=== PATIENT | female | born 1960 | race Caucasian/White ===

== ENCOUNTER 2021-02-03 11:23 | Emergency (ER) | payer OTHER ==
[2021-02-03 12:29] LABS: RED BLOOD COUNT 4.75 M/UL (4.00-5.10); WHITE BLOOD COUNT 12.9 K/UL (4.5-11.0)
[2021-02-03 13:03] LABS: BUN/CREATININE RATIO 18 (0-10)
[2021-02-03] MEDS ORDERED: PREDNISONE 50 M50 MG PO (15:01)
== END 2021-02-03 15:25 | disposition home or self-care (01) ==
LOC: ER1 11:23
PROVIDERS: Family Medicine
DX: J44.1 Chronic obstructive pulmonary disease with (acute) exacerbation (principal); E87.6 Hypokalemia; E78.5 Hyperlipidemia, unspecified; I10 Essential (primary) hypertension; K21.9 Gastro-esophageal reflux disease without esophagitis; F17.210 Nicotine dependence, cigarettes, uncomplicated; Z79.899 Other long term (current) drug therapy; Z88.1 Allergy status to other antibiotic agents; Z88.8 Allergy status to other drugs, medicaments and biological substances
CPT/HCPCS: 71046; 80053; 82550; 82553; 83874; 83880; 84484; 85025; 93005; 94664; 94760; 99285

== ENCOUNTER → 2021-06-19 | Outpatient (CLI) | payer OTHER ==
[~2021-06-19] MED LIST: PREDNISONE 50 M50 MG PO
== END ==
LOC: HEART 5 13:23
DX: M79.605 Pain in left leg (principal); M79.662 Pain in left lower leg; M79.604 Pain in right leg; M79.661 Pain in right lower leg

== ENCOUNTER → 2022-05-19 | Outpatient (CLI) | payer OTHER | LOC: HEART 5 08:47 | DX: J44.9 Chronic obstructive pulmonary disease, unspecified (principal); F17.210 Nicotine dependence, cigarettes, uncomplicated | CPT/HCPCS: 94060; 94729 ==